=== PATIENT | female | born 1980 | race Hispanic/Latino ===

== ENCOUNTER 2019-12-30 09:20 | Emergency (ER) | payer OTHER ==
--- OUTSIDE RECORDS SUMMARY | 2019-12-30 09:23 | XMS REPORT | Continuity of Care Document ---
:1980 Author Organization [facility] t Address [address] [place] [address] Care Team Providers Name Role Phone Ultrasound Attending Clinician Unavailable Problems This patient has no known problems. Allergies, Adverse Reactions, Alerts This patient has no known allergies or adverse reactions. Medications This patient has no known medications. Procedures This patient has no known procedures. Encounters Start End Encounter Admission Attending Care Care Encounter Source Date/Time Date/Time Type Type Clinicians Facility Department ID 2019-07-06 2019-08-07 Manager Digital Ultrasound, [facility] [id number] 11:06:51 21:34:07 Visit Shaq-Reynaldo GRILL ATTENDANT [id number] [facility] [id number] MATERNAL [id number] & CHILD [address] [place] [address] Results This patient has no known results.
[2019-12-30 09:49] LABS: Urine Blood NEGATIVE (NEG); Urine Glucose NEGATIVE (NEG); Urine Protein 2+ (NEG); Urine pH 5.5 (5.0-7.0)
[2019-12-30 10:28] LABS: Urine Culture Reflex Order NOT NEEDED
[2019-12-30 10:29] LABS: Urine Bacteria LOADED /HPF (<20); Urine RBC NONE SEEN /HPF (NONE SEEN)
[2019-12-30 10:30] LABS: Urine Mucus MOD /HPF (NONE SEEN)
--- NOTE | 2019-12-30 10:32 | RAD REPORT ---
EXAM DESCRIPTION: RAD - Chest Single View - 12/30/2019 10:19 am CLINICAL HISTORY: COVID;Cough Chest pain. COMPARISON: No comparisons FINDINGS: Portable technique limits examination quality. Interstitial lung prominence is present bilaterally suggesting a viral pneumonitis/ bronchitis. The h eart is normal in size. No displaced fractures.
--- NOTE | 2019-12-30 10:55 | EDPHYS ---
Physician Documentation [facility] Name: Dora Reina Age: 39 yrs Sex: Female : 1980 Arrival Date: 12/30/2019 Time: 09:22 Bed 4 Private MD: ED Physician Jose Angel St HPI: 12/29 09:37 This 39 yrs old Female presents to ER via Unassigned with complaints of Fever. rn 09:37 The patient reports fever, that was measured at 105 degrees Fahrenheit. Onset: The rn symptoms/episode began/occurred 4 day(s) ago. Modifying factors: The patient has had contact with sick daughter. Associated signs and symptoms: Pertinent positives: chills, cough, myalgias, runny nose, sinus congestion, sinus drainage, Pertinent negatives: altered mental status, chest pain, skin rash. Severity of symptoms: At their worst the symptoms were moderate in the emergency department the symptoms are unchanged. The patient has not experienced similar symptoms in the past. The patient has not recently seen a physician. Reports fever, symptoms for 4 days, sent by Dr. Philip for evaluation. Daughter at home and COVID-19 +. Patient reports fever/chills/runny nose/congestion/cough/sob/muscle aches. Taking tylenol for fever and goes down. Already tested for COVID yesterday, results pending. No vaginal discharge/leakage of fluid. Is feeling baby move. 38 weeks . . Historical: - Allergies: 09:47 No Known Allergies; ss - Home Meds: 09:47 None [Active]; ss - PMHx: 09:47 EAR PROBLEMS; ss - PSHx: 09:47 RIGHT HAND SURG; ss - Immunization history:: Adult Immunizations up to date. - Social history:: Smoking status: Patient denies any tobacco usage or history of. - Family history:: not pertinent. - Hospitalizations: : No recent hospitalization is reported. ROS: 09:37 Constitutional: + fever and chills Eyes: Negative for injury, pain, redness, and rn obgyn, ENT: + runny nose and congestion Neck: Negative for injury, pain, and swelling, Cardiovascular: Negative for chest pain, palpitations, and edema, Respiratory: Negative for wheezing, and pleuritic chest pain, + cough and sob Abdomen/GI: Negative for abdominal pain, nausea, vomiting, diarrhea, and constipation, Back: Negative for injury and pain, : Negative for injury, bleeding, discharge, and swelling, MS/Extremity: Negative for injury and deformity, Skin: Negative for injury, rash, and discoloration, Neuro: Negative for headache, numbness, tingling, and seizure. Exam: 09:37 Constitutional: This is a well developed, well nourished patient who is awake, alert, rn and in no acute distress. Ambulatory to room without difficulty Head/Face: Normocephalic, atraumatic. ENT: no stridor Cardiovascular: Regular rate and rhythm. No pulse deficits. Respiratory: Speaking full sentences. No increased work of breathing, no retractions or nasal flaring. Abdomen/GI: Soft, non-tender, + gravid Back: No spinal tenderness. No costovertebral tenderness. Full range of motion. Skin: Warm, dry MS/ Extremity: Pulses equal, no cyanosis. Neurovascular intact. Full, normal range of motion. Equal circumference. Neuro: Awake and alert, GCS 15 Vital Signs: 09:23 BP 122 / 57; Pulse 98; Resp 24; Temp 98.4(TE); Pulse Ox 96% on R/A; Weight 95.25 kg; ss Height 5 ft. 1 in. (154.94 cm); Pain 0/10; 09:23 Body Mass Index 39.68 (95.25 kg, 154.94 cm) ss MDM: 09:24 Patient medically screened. rn 10:49 Differential diagnosis: viral Infection, bacterial infection, URI, bronchitis, rn pneumonia UTI. Data reviewed: vital signs, nurses notes, lab test result(s), radiologic studies, and as a result, I will discharge patient. Counseling: I had a detailed discussion with the patient and/or guardian regarding: the historical points, exam findings, and any diagnostic results supporting the discharge/admit diagnosis, lab results, radiology results, the need for outpatient follow up, to return to the emergency department if symptoms worsen or persist or if there are any questions or concerns that arise at home. Response to treatment: the patient's symptoms have mildly improved after treatment, and as a result, I will discharge patient. Special discussion: I discussed with the patient/guardian in detail that at this point there is no indication for admission to the hospital. It is understood, however, that if the symptoms persist or worsen the patient needs to return immediately for re-evaluation. ED course: Pt likely with COVID-19, no oxygen requirement, + UTI as well, likely combination of the 2 causing high fever. Will dc home with abx for UTI, and steroids for COVID. COVID results pending but given xray findings and loss of taste and smell in addition to positive patient at home, likely going to be positive. Short course of steroids not likely to be harmful in this late , and strict return precautions given to return if symptoms worsen. Pt afebrile, laying flat, and states feels ok. . 12/29 09:32 Order name: Flu rn 12/29 09:32 Order name: Urine Microscopic Only; Complete Time: 10:36 rn 12/29 09:32 Order name: XRAY Chest (1 view); Complete Time: 10:36 rn 12/29 09:41 Order name: Urine Dipstick--Ancillary (enter results); Complete Time: 10:21 eb 12/29 09:32 Order name: Urine Dipstick-Ancillary (obtain specimen); Complete Time: 09:45 rn Administered Medications: 10:52 Drug: Macrobid 100 mg Route: PO; em 11:04 Follow up: Response: No adverse reaction em 10:53 Drug: Decadron 10 mg Route: IM; Site: right deltoid; em 11:04 Follow up: Response: No adverse reaction em Disposition: 12/30/19 10:54 Discharged to Home. Impression: Coronavirus infection, unspecified, Urinary tract infection, site not specified. - Condition is Stable. - Discharge Instructions: Acute Bronchitis, Adult, Urinary Tract Infection, Adult, and Urinary Tract Infection, COVID-19. - Prescriptions for dexamethasone 6 mg Oral tablet - take 1 tablet by ORAL route once daily for 10 days; 10 tablet. Macrobid 100 mg Oral Capsule - take 1 capsule by ORAL route every 12 hours for 10 days; 20 capsule. - Medication Reconciliation Form, Thank You Letter, Antibiotic Education, Prescription Opioid Use form. - Follow up: Private Physician; When: 1 - 2 days; Reason: Recheck today's complaints, Re-evaluation by your physician. - Problem is new. - Symptoms have improved. Signatures: Dispatcher [employer] Winston Díaz RN RN em Jose Angel St MD MD rn Smirch, Shelby, RN RN ss Corrections: (The following items were deleted from the chart) 11:06 10:54 12/30/2019 10:54 Discharged to Home. Impression: Coronavirus infection, em unspecified; Urinary tract infection, site not specified. Condition is Stable. Forms are Medication Reconciliation Form, Thank You Letter, Antibiotic Education, Prescription Opioid Use. Follow up: Private Physician; When: 1 - 2 days; Reason: Recheck today's complaints, Re-evaluation by your physician. Problem is new. Symptoms have improved. rn
--- NOTE | 2019-12-30 10:55 | ER ---
Nurse's Notes [facility] Name: Dora Reina Age: 39 yrs Sex: Female : 1980 Arrival Date: 12/30/2019 Time: 09:22 Bed 4 Private MD: Diagnosis: Coronavirus infection, unspecified;Urinary tract infection, site not specified Presentation: 12/29 09:23 Chief complaint: Patient states: Sent by Dr. Philip for further evaluation of fever. Pt ss reports cough, runny nose, body aches, SOB and loss of smell that began 4 days ago. Was swabbed for COVID-19 yesterday. Pt is 38 weeks . Coronavirus screen: Client denies travel out of the [place] in the last 14 days. chills, cough unrelated to allergies, difficulty breathing, fever, muscle pain, runny nose, shaking with chills, shortness of breath, loss of taste or smell, Client presents with at least one sign or symptom that may indicate coronavirus-19. Standard/surgical mask placed on the client. Provider contacted for isolation considerations. Ebola Screen: Patient denies exposure to infectious person. Patient denies travel to an Ebola-affected area in the 21 days before illness onset. Initial Sepsis Screen: Does the patient meet any 2 criteria? Does the patient have a suspected source of infection? No. Patient's initial sepsis screen is negative. Risk Assessment: Do you want to hurt yourself or someone else? Patient reports no desire to harm self or others. Onset of symptoms was December 26, 2019. 09:23 Method Of Arrival: Ambulatory ss 09:23 Acuity: PERRI 3 ss Historical: - Allergies: 09:47 No Known Allergies; ss - Home Meds: 09:47 None [Active]; ss - PMHx: 09:47 EAR PROBLEMS; ss - PSHx: 09:47 RIGHT HAND SURG; ss - Immunization history:: Adult Immunizations up to date. - Social history:: Smoking status: Patient denies any tobacco usage or history of. - Family history:: not pertinent. - Hospitalizations: : No recent hospitalization is reported. Screenin:49 Abuse screen: Denies threats or abuse. Nutritional screening: No deficits noted. em Tuberculosis screening: No symptoms or risk factors identified. Fall Risk None identified. Assessment: 09:50 General: Appears in no apparent distress. uncomfortable, Behavior is calm, cooperative, em appropriate for age, Reports fever for 12-24 hours. Pain: Complains of pain in "body aches". Neuro: Level of Consciousness is awake, alert, obeys commands, Oriented to person, place, time, situation, Appropriate for age. Cardiovascular: Capillary refill < 3 seconds Patient's skin is warm and dry. Respiratory: Reports shortness of breath Airway is patent Respiratory effort is even, unlabored, Respiratory pattern is regular, symmetrical. GI: Abdomen is flat. Derm: Skin is intact, is healthy with good turgor, Skin is pink, warm \\T\\ dry. Musculoskeletal: Capillary refill < 3 seconds, Range of motion: intact in all extremities. 11:04 Reassessment: Patient appears in no apparent distress at this time. Patient and/or em family updated on plan of care and expected duration. Pain level reassessed. Patient is alert, oriented x 3, equal unlabored respirations, skin warm/dry/pink. Vital Signs: 09:23 BP 122 / 57; Pulse 98; Resp 24; Temp 98.4(TE); Pulse Ox 96% on R/A; Weight 95.25 kg; ss Height 5 ft. 1 in. (154.94 cm); Pain 0/10; 09:23 Body Mass Index 39.68 (95.25 kg, 154.94 cm) ss ED Course: 09:22 Patient arrived in ED. mr 09:[address] MD is Attending Physician. rn 09:25 Winston Gómez RN is Primary Nurse. em 09:40 Urine collected: clean catch specimen, cloudy, Flu and/or RSV swab sent to lab. em 09:46 Triage completed. ss 09:47 Arm band placed on right wrist. ss 09:49 Patient has correct armband on for positive identification. Placed in gown. Bed in low em position. Call light in reach. Adult w/ patient. 10:19 XRAY Chest (1 view) In Process Unspecified. EDMS 11:02 No provider procedures requiring assistance completed. Patient did not have IV access em during this emergency room visit. Administered Medications: 10:52 Drug: Macrobid 100 mg Route: PO; em 11:04 Follow up: Response: No adverse reaction em 10:53 Drug: Decadron 10 mg Route: IM; Site: right deltoid; em 11:04 Follow up: Response: No adverse reaction em Outcome: 10:54 Discharge ordered by . rn 11:02 Discharged to home ambulatory, with family. em 11:02 Condition: good 11:02 Discharge instructions given to patient, family, Instructed on discharge instructions, follow up and referral plans. medication usage, Demonstrated understanding of instructions, follow-up care, medications, Prescriptions given X 2. 11:06 Patient left the ED. em Signatures: Dispatcher [employer] Maddi Zaidi Edgar, RN RN Jose Angel Patel MD MD rn Smirch, Shelby, RN RN ss
[2019-12-30] MEDS ORDERED: dexAMETHasone 10 MG/ML VIAL ONE (11:00)
[2019-12-30] MEDS ORDERED: NITROFURAN MACRO 100 MG CAP PO ONE (11:01)
[2019-12-30 23:17] VITALS: BP 122/57; TEMP 98.4; O2SAT 96
== END 2019-12-30 11:06 | disposition home or self-care (01) ==
LOC: ER 09:20
DX: O98.513 Other viral diseases complicating pregnancy, third trimester (principal); U07.1 COVID-19; O23.43 Unspecified infection of urinary tract in pregnancy, third trimester; Z3A.38 38 weeks gestation of pregnancy
CPT/HCPCS: 87804 ×2; 71045; 96372; 99284; J1100; 81003; 81015

== ENCOUNTER 2020-01-04 06:00 | Emergency (ER) | payer OTHER, SELFPAY ==
--- OUTSIDE RECORDS SUMMARY | 2020-01-04 06:03 | XMS REPORT | Continuity of Care Document ---
:1980 Author Organization [facility] t Address [address] [place] [address] Care Team Providers Name Role Phone Ultrasound [...] Type Clinicians Facility Department ID 2019-07-06 2019-08-07 Underwater Roboticist Ultrasound, [facility] [id number] 11:06:51 21:34:07 Visit Shaq-Reynaldo EMERGENCY PLANNER [id number] [facility] [id number] MATERNAL [id number] & CHILD [address] [place] [address] Results This patient has no known results.
[2020-01-04] MEDS ORDERED: FAMOTIDINE 20 MG/2 ML VIAL IV ONE (06:29)
[2020-01-04] MEDS ORDERED: CEFTRIAXONE/SWI 1gm 1 GM/10 ML SYR ONE (06:29)
[2020-01-04] MEDS ORDERED: dexAMETHasone 10 MG/ML VIAL ONE (06:29)
[2020-01-04] MEDS ORDERED: ALBUTEROL INHALER 60 PUFF/8 GM IH ONE (06:30)
[2020-01-04] MEDS ORDERED: NA CHLORIDE 0.9% 1,000 ML ONE (06:32)
[2020-01-04] MEDS ORDERED: NA CHLORIDE 0.9% 500 ML ONE (06:32)
[2020-01-04 06:36] LABS: Absolute Lymphocytes (CBC) 0.6 K/uL (0.7-4.9); Basophils % 0.2 % (0-1.3); Hematocrit 28.1 % (36.0-45.0); Lymphocytes % 8.2 % (15.3-44.8); MPV 10.6 fL (7.6-11.3); RBC Red Blood Cell Count 3.44 M/uL (3.86-4.86)
[2020-01-04 06:57] LABS: ALT/SGPT 80 U/L (12-78); AST/SGOT 66 U/L (15-37); Albumin 2.1 g/dL (3.4-5.0); Alkaline Phosphatase 125 U/L (45-117); BUN Blood Urea Nitrogen 16 mg/dL (7-18); Bicarbonate 20 mmol/L (21-32); Bilirubin Total 0.4 mg/dL (0.2-1.0); Glucose Level 88 mg/dL (74-106); Potassium 3.4 mmol/L (3.5-5.1); Protein, Total 6.6 g/dL (6.4-8.2); Sodium Level 144 mmol/L (136-145)
[2020-01-04 07:26] LABS: Platelet Estimate ADEQ; White Blood Cell Scan OK (OK)
[2020-01-04 07:27] LABS: Blood Morphology Comment NOT SEEN (NOT SEEN); Platelets, Giant FEW
--- NOTE | 2020-01-04 07:32 | RAD REPORT ---
EXAM DESCRIPTION: Phil Single View01/04/2020 6:44 am CLINICAL HISTORY: Shortness breath COMPARISON: December 30, 2019 FINDINGS: Extensive bilateral alveolar opacities are present. Heart is mildly enlarged IMPRESSION: Extensive bilateral alveolar opacities may represent pneumonia or pulmonary edema
--- NOTE | 2020-01-04 08:19 | ER ---
Nurse's Notes [facility] Name: Dora Reina Age: 39 yrs Sex: Female : 1980 Arrival Date: 01/04/2020 Time: 06:01 Bed 8 Private MD: Diagnosis: Hypoxemia;39 weeks gestation of ;SARS-associated coronavirus as the cause of diseases classified elsewhere Presentation: 01/03 06:07 Chief complaint: Patient states: Pt reports she tested Covid positive ten days ago, she ea started feeling short of breath a few days ago. Pt reports she is 39 weeks . Coronavirus screen: Client presents with at least one sign or symptom that may indicate coronavirus-19. Standard/surgical mask placed on the client. Provider contacted for isolation considerations. Ebola Screen: No symptoms or risks identified at this time. Initial Sepsis Screen: Does the patient meet any 2 criteria? No. Patient's initial sepsis screen is negative. Does the patient have a suspected source of infection? Yes:. Risk Assessment: Do you want to hurt yourself or someone else? Patient reports no desire to harm self or others. Onset of symptoms was January 04, 2020. 06:07 Acuity: PERRI 3 ea 06:07 Method Of Arrival: Wheelchair ea 07:00 Note PER REPORT, PT ROOM AIR SAT 85%. bp Triage Assessment: 06:13 General: Appears uncomfortable, Behavior is appropriate for age. Pain: Denies pain. ea Neuro: Level of Consciousness is awake, alert, obeys commands, Oriented to person, place, time, situation. Cardiovascular: Patient's skin is warm and dry. Respiratory: Reports shortness of breath at rest Airway is patent Respiratory effort is labored, Respiratory pattern is symmetrical, tachypnea Onset: The symptoms/episode began/occurred yesterday, the patient has mild shortness of breath. SENIOR SOFTWARE ENGINEER: 07:00 6, Full Term 5 bp Historical: - Allergies: 06:13 No Known Allergies; ea - PMHx: 06:13 EAR PROBLEMS; ea - PSHx: 06:13 RIGHT HAND SURG; ea - Immunization history:: Adult Immunizations up to date. - Social history:: Smoking status: Patient denies any tobacco usage or history of. Screenin:07 Abuse screen: Denies threats or abuse. Nutritional screening: No deficits noted. ea Tuberculosis screening: No symptoms or risk factors identified. Fall Risk None identified. Assessment: 06:00 General: Appears in no apparent distress. Behavior is calm, cooperative, appropriate ll2 for age. Pain: Denies pain. Neuro: Level of Consciousness is awake, alert, obeys commands, confused. Cardiovascular: Rhythm is regular. Respiratory: Airway is patent Respiratory effort is even, unlabored, Respiratory pattern is regular, symmetrical, Breath sounds are clear. GI: No signs and/or symptoms were reported involving the gastrointestinal system. : No signs and/or symptoms were reported regarding the genitourinary system. EENT: No signs and/or symptoms were reported regarding the EENT system. Derm: No signs and/or symptoms reported regarding the dermatologic system. Musculoskeletal: Circulation, motion, and sensation intact. Range of motion: intact in all extremities. 06:30 Reassessment: Patient and/or family updated on plan of care and expected duration. Pain ll2 level reassessed. Patient is alert, oriented x 3, equal unlabored respirations, skin warm/dry/pink. 06:30 Reassessment: pts ot sat dropped below 90, nc o2 increased to 8L. ll2 07:00 Reassessment: RECD REPORT FROM BRENDA LUTHER. 39YO HF P/W SOB, SENT FROM L\T\D. PT ON HIGH bp FLOW O2, COVID +. RESULTS PENDING FOR DISPO. 08:00 Reassessment: No changes from previously documented assessment. Patient and/or family bp updated on plan of care and expected duration. Pain level reassessed. ALL CURRENT ORDERS COMPLETED. PT PLACED ON VENTI-MASK BY RT. DISPO PENDING. 08:30 Reassessment: MED REQUESTED FROM PHARMACY. bp 09:00 Reassessment: No changes from previously documented assessment. Patient and/or family bp updated on plan of care and expected duration. Pain level reassessed. TRANSFER INITIATED Patient states symptoms have improved. 10:00 Reassessment: [facility]/S FOR TRANSPORT. bp Vital Signs: 06:07 BP 126 / 75; Pulse 86; Resp 28; Temp 98.8; Pulse Ox 95% on 4 lpm NC; ea 07:00 BP 129 / 75; Pulse 84; Resp 17; Pulse Ox 94% on 7 lpm NC; bp 08:00 BP 133 / 82; Pulse 81; Resp 19; Pulse Ox 95% on 50% Venturi mask; bp 09:00 BP 135 / 90; Pulse 84; Resp 16; Pulse Ox 97% on 50% Venturi mask; bp 10:01 BP 125 / 68; Pulse 88; Resp 17; Temp 98.5; Pulse Ox 97% on 50% Venturi mask; bp Vitals: 07:15 Heart Tones 152. bp ED Course: 06:01 Patient arrived in ED. cl3 06:05 Hermes Garcia MD is Attending Physician. jesse 06:12 Triage completed. ea 06:12 Patient has correct armband on for positive identification. Bed in low position. Call ea light in reach. Side rails up X 1. Pulse ox on. NIBP on. 06:12 Arm band placed on right wrist. Patient placed in an exam room, on a stretcher, on ea oxygen, on pulse oximetry. 06:20 Tram Johnson, HOMA is Primary Nurse. ll2 06:30 Inserted saline lock: 22 gauge in right antecubital area, using aseptic technique. ds4 Blood collected. 06:31 Attending Physician role handed off by Hermes Garcia MD sg 06:31 Micki Roper MD is Attending Physician. sg 06:45 Chest Single View XRAY: shield In Process Unspecified. EDMS 07:01 EKG done, by ED staff, reviewed by Micki Roper MD. ds4 09:02 Primary Nurse role handed off by Tram Johnson, HOMA bp 09:02 Arsalan Boyce, RN is Primary Nurse. bp 09:02 pt accepted in transfer to [facility] by dr Goins, admin approval given by nancie Jalloh. 09:04 No provider procedures requiring assistance completed. Patient transferred, IV remains bp in place. Administered Medications: 06:39 Drug: NS 0.9% 500 ml Route: IV; Rate: bolus; Site: right antecubital; ll2 09:20 Follow up: IV Status: Completed infusion; IV Intake: 500ml bp 06:45 Drug: Decadron - Dexamethasone 10 mg Route: IVP; Site: left antecubital; ll2 07:25 Follow up: Response: No adverse reaction bp 06:45 Drug: Albuterol HFA Inhaler 4 puffs Route: Inhalation; ll2 06:45 Drug: Rocephin 1 grams Route: IV; Rate: per protocol; Site: left antecubital; ll2 09:20 Follow up: IV Status: Completed infusion bp 06:45 Drug: Pepcid 20 mg Route: IVP; Site: left antecubital; ll2 07:26 Follow up: Response: No adverse reaction bp 06:45 Drug: NS 0.9% 1000 ml Route: IV; Rate: 125 ml/hr; Site: left antecubital; ll2 10:03 Follow up: IV Status: Completed infusion; IV Intake: 375ml bp 09:15 Drug: AZITHromycin 500 mg Route: IVPB; Infused Over: 1 hrs; Site: right antecubital; bp 10:02 Follow up: IV Status: Completed infusion; IV Intake: 250ml bp Intake: 09:20 IV: 500ml; Total: 500ml. bp 10:02 IV: 250ml; Total: 750ml. bp 10:03 IV: 375ml; Total: 1125ml. bp Outcome: 08:19 ER care complete, transfer ordered by MD. velazquez 09:06 Transferred by ground EMS to [facility], Transfer form sv completed. Note: Leo LUTHER 09:06 Condition: stable 09:06 Instructed on the need for transfer. 10:18 Patient left the ED. bp Signatures: Dispatcher [employer] EDMS Rashida Barrow Stephanie, RN Steven Gutierrez RN RN sg Anderson, Corey, MD MD cha Swanson, Donovan ds4 Shira Prescott RN RN ea Peltier, Brian, RN RN bp Alzahri, Mohammad, MD MD ma2 Lewis, Charde cl3 Tram Johnson RN RN ll2 Corrections: (The following items were deleted from the chart) 09:21 08:00 Reassessment: ALL CURRENT ORDERS COMPLETED. PT PLACED ON VENTI-MASK BY RT. DISPO bp PENDING bp 09:22 09:00 Reassessment: TRANSFER INITIATED bp bp
--- NOTE | 2020-01-04 08:20 | EDPHYS ---
Physician Documentation [facility] Name: Dora Reina Age: 39 yrs Sex: Female : 1980 Arrival Date: 01/04/2020 Time: 06:01 Bed 8 Private MD: ED Physician Micki Roper HPI: 01/03 06:10 This 39 yrs old Female presents to ER via Unassigned with complaints of jesse Breathing Difficulty. 06:10 The patient has shortness of breath at rest, with light activity. Onset: The jesse symptoms/episode began/occurred 2 day(s) ago. Duration: The symptoms are continuous, and are steadily getting worse. The patient's shortness of breath has no apparent modifying factors. Associated signs and symptoms: The patient has no apparent associated signs or symptoms. Severity of symptoms: At their worst the symptoms were moderate in the emergency department the symptoms are worse moderately. The patient has not experienced similar symptoms in the past. RN INTENSIVE CARE UNIT: 07:00 6, Full Term 5 bp Historical: - Allergies: 06:13 No Known Allergies; ea - PMHx: 06:13 EAR PROBLEMS; ea - PSHx: 06:13 RIGHT HAND SURG; ea - Immunization history:: Adult Immunizations up to date. - Social history:: Smoking status: Patient denies any tobacco usage or history of. ROS: 06:13 Constitutional: Negative for fever, chills, and weight loss, Eyes: Negative for injury, jesse pain, redness, and discharge, ENT: Negative for injury, pain, and discharge, Neck: Negative for injury, pain, and swelling, Cardiovascular: Negative for chest pain, palpitations, and edema, Back: Negative for injury and pain, : Negative for injury, bleeding, discharge, and swelling, MS/Extremity: Negative for injury and deformity, Skin: Negative for injury, rash, and discoloration, Neuro: Negative for headache, weakness, numbness, tingling, and seizure, Psych: Negative for depression, anxiety, suicide ideation, homicidal ideation, and hallucinations, Allergy/Immunology: Negative for hives, rash, and allergies, Endocrine: Negative for neck swelling, polydipsia, polyuria, polyphagia, and marked weight changes, Hematologic/Lymphatic: Negative for swollen nodes, abnormal bleeding, and unusual bruising. 06:13 Respiratory: Positive for cough, shortness of breath, at rest. 06:13 Abdomen/GI: Positive for abdominal distension. Exam: 06:13 Constitutional: This is a well developed, well nourished patient who is awake, alert, jesse and in no acute distress. Head/Face: Normocephalic, atraumatic. Eyes: Pupils equal round and reactive to light, extra-ocular motions intact. Lids and lashes normal. Conjunctiva and sclera are non-icteric and not injected. Cornea within normal limits. Periorbital areas with no swelling, redness, or edema. ENT: Nares patent. No nasal discharge, no septal abnormalities noted. Tympanic membranes are normal and external auditory canals are clear. Oropharynx with no redness, swelling, or masses, exudates, or evidence of obstruction, uvula midline. Mucous membranes moist. Neck: Trachea midline, no thyromegaly or masses palpated, and no cervical lymphadenopathy. Supple, full range of motion without nuchal rigidity, or vertebral point tenderness. No Meningismus. Chest/axilla: Normal chest wall appearance and motion. Nontender with no deformity. No lesions are appreciated. Cardiovascular: Regular rate and rhythm with a normal S1 and S2. No gallops, murmurs, or rubs. Normal PMI, no JVD. No pulse deficits. Back: No spinal tenderness. No costovertebral tenderness. Full range of motion. Skin: Warm, dry with normal turgor. Normal color with no rashes, no lesions, and no evidence of cellulitis. MS/ Extremity: Pulses equal, no cyanosis. Neurovascular intact. Full, normal range of motion. Neuro: Awake and alert, GCS 15, oriented to person, place, time, and situation. Cranial nerves II-XII grossly intact. Motor strength 5/5 in all extremities. Sensory grossly intact. Cerebellar exam normal. Normal gait. 06:13 Respiratory: mild respiratory distress is noted, moderate respiratory distress is noted, Respirations: labored breathing, that is mild, Breath sounds: decreased breath sounds, rhonchi, that are moderate, Respiratory rate: 28 06:13 Abdomen/GI: Inspection: gravid appearance, is noted, Bowel sounds: normal, Palpation: nontender, Liver: no appreciated palpable abnormalities, Hernia: not appreciated. 06:13 Musculoskeletal/extremity: Circulation is intact in all extremities. Sensation intact. DVT Exam: no pain, no swelling, no tenderness, negative Homans' sign noted on exam, no appreciated bluish discoloration, no erythema, no increased warmth. Vital Signs: 06:07 BP 126 / 75; Pulse 86; Resp 28; Temp 98.8; Pulse Ox 95% on 4 lpm NC; ea 07:00 BP 129 / 75; Pulse 84; Resp 17; Pulse Ox 94% on 7 lpm NC; bp 08:00 BP 133 / 82; Pulse 81; Resp 19; Pulse Ox 95% on 50% Venturi mask; bp 09:00 BP 135 / 90; Pulse 84; Resp 16; Pulse Ox 97% on 50% Venturi mask; bp 10:01 BP 125 / 68; Pulse 88; Resp 17; Temp 98.5; Pulse Ox 97% on 50% Venturi mask; bp MDM: 06:05 Patient medically screened. jesse 06:15 Differential diagnosis: asthma, Bronchitis CHF exacerbation, Chronic Obstructive jesse Pulmonary Disease pulmonary edema, Pulmonary Embolism reactive airway disease, Unstable Angina. Antibiotic administration: rocephin . The patient's Wells Deep Vein Thrombosis Score was calculated as follows: Total Score: 0-2 Pts- Low Risk. The patient's pulmonary embolism risk score was calculated as follows: Total Score: 0-2 points. This patient was found to be at low risk for a pulmonary embolism by using the Well's assessment criteria. Immunization status:. Data reviewed: vital signs, nurses notes, lab test result(s), EKG, radiologic studies. Data interpreted: court monitor: rate is 86 beats/min, rhythm is regular. Test interpretation: by ED physician or midlevel provider: plain radiologic studies. Counseling: I had a detailed discussion with the patient and/or guardian regarding: the historical points, exam findings, and any diagnostic results supporting the discharge/admit diagnosis, lab results, radiology results, the need to transfer to another facility, for higher level of care, [facility] does not immediately have the required specialist. 06:17 ED course: dr thapa to follow up labs, cxr, tranfer to [facility] ob. jesse 08:15 ED course: discussed with dr. Hammond at [facility], i requested transfer for higher level of ma2 care as we do not have covid + [employer] bed in our er. patient accepted by dr. Hammond. . ED course: discussed with L and D in our hospital, dr. Chavez cleared evaluated baby and mother, tracing showed normal hr and reactive tracing, mother is not in labor. . 01/03 06:09 Order name: CBC with Diff; Complete Time: 07:[address] [facility] 01/03 06:09 Order name: Comprehensive Metabolic Panel; Complete Time: 07:[address] [facility] 01/03 06:09 Order name: Chest Single View XRAY: shield; Complete Time: 07:[address] [facility] 01/03 06:09 Order name: Blood Culture Adult (2) [facility] 01/03 06:17 Order name: BNP; Complete Time: 07:[address] [facility] 01/03 06:40 Order name: CBC Smear Scan; Complete Time: 07:28 [facility] 01/03 06:17 Order name: EKG; Complete Time: 06:[address] [facility] 01/03 06:09 Order name: FHT's; Complete Time: 07:[address] [facility] 01/03 06:17 Order name: EKG - Nurse/Tech; Complete Time: 07:[address] [facility] Administered Medications: 06:39 Drug: NS 0.9% 500 ml Route: IV; Rate: bolus; Site: right antecubital; ll2 09:20 Follow up: IV Status: Completed infusion; IV Intake: 500ml bp 06:45 Drug: Decadron - Dexamethasone 10 mg Route: IVP; Site: left antecubital; ll2 07:25 Follow up: Response: No adverse reaction bp 06:45 Drug: Albuterol HFA Inhaler 4 puffs Route: Inhalation; ll2 06:45 Drug: Rocephin 1 grams Route: IV; Rate: per protocol; Site: left antecubital; ll2 09:20 Follow up: IV Status: Completed infusion bp 06:45 Drug: Pepcid 20 mg Route: IVP; Site: left antecubital; ll2 07:26 Follow up: Response: No adverse reaction bp 06:45 Drug: NS 0.9% 1000 ml Route: IV; Rate: 125 ml/hr; Site: left antecubital; ll2 10:03 Follow up: IV Status: Completed infusion; IV Intake: 375ml bp 09:15 Drug: AZITHromycin 500 mg Route: IVPB; Infused Over: 1 hrs; Site: right antecubital; bp 10:02 Follow up: IV Status: Completed infusion; IV Intake: 250ml bp Disposition: 01/04/20 08:19 Transfer ordered to [facility]. Diagnosis are Hypoxemia, 39 weeks gestation of , SARS-associated coronavirus as the cause of diseases classified elsewhere. - Reason for transfer: Higher level of care. - Accepting physician is Hammond . - Condition is Stable. - Problem is new. - Symptoms are unchanged. Signatures: Dispatcher [employer] EDHermes Bonilla MD MD cha Antunez, Elena, RN RN Arsalan Jones RN RN bp Alzahri, Mohammad, MD MD ma2 Tram Johnson RN RN ll2 Corrections: (The following items were deleted from the chart) 10:18 08:19 01/04/2020 08:19 Transfer ordered to [facility]. Diagnosis is Hypoxemia; 39 bp weeks gestation of ; SARS-associated coronavirus as the cause of diseases classified elsewhere. Reason for transfer: Higher level of care. Accepting physician is Hammond . Condition is Stable. Problem is new. Symptoms are unchanged. ma2
[2020-01-04] MEDS ORDERED: AZITHROMYCIN IV 500 MG in NA CHLORIDE 0.9% 250 ML IVPB ONE (09:00)
[2020-01-04 11:41] VITALS: O2SAT 97
[2020-01-04 11:43] VITALS: BP 125/68; TEMP 98.5
== END 2020-01-04 10:18 | disposition short-term general hospital (02) ==
LOC: ER 06:00
DX: O98.513 Other viral diseases complicating pregnancy, third trimester (principal); U07.1 COVID-19; R09.02 Hypoxemia; Z3A.39 39 weeks gestation of pregnancy
CPT/HCPCS: 93005; 87040 ×2; 85025; 36415; 80053; 83880; 71045; 99285; J0456; J1100; J0696; J7050; J7040; J7030